=== PATIENT | female | born 1985 | race Caucasian/White ===

== ENCOUNTER 2019-01-21 10:56 | Emergency (ER) | payer OTHER ==
[~2019-01-21] VITALS: Ht 170.2 cm; Wt 113.6 kg
[~2019-01-21 10:56] MED LIST: CROT60CR TP; IBUP-1051 PO
[2019-01-21 11:04] VITALS: BP 138/90
[2019-01-21] MEDS ORDERED: METH-360 PO (12:12)
[2019-01-21] MEDS ORDERED: ketorolac tromethamine 15mg/ml inj. IM ONE (12:15)
== END 2019-01-21 12:40 | disposition home or self-care (01) ==
LOC: ER 10:58
DX: S39.012A Strain of muscle, fascia and tendon of lower back, initial encounter (principal); E66.9 Obesity, unspecified; Z56.0 Unemployment, unspecified; Z90.49 Acquired absence of other specified parts of digestive tract; V49.88XA Car occupant (driver) (passenger) injured in other specified transport accidents, initial encounter; Y93.89 Activity, other specified; Y92.413 State road as the place of occurrence of the external cause; Y99.9 Unspecified external cause status
CPT/HCPCS: 96372; 99284; J1885